=== PATIENT | male | born 2000 | race Caucasian/White ===

== ENCOUNTER 2021-02-08 18:30 | Emergency (ER) | payer OTHER ==
--- NOTE | 2021-02-08 18:53 | ED Physician Documentation ---
History of Present Illness - Stated complaint Stated Complaint: C+ SYMPTOMS - History obtained from History obtained from: Patient - Additonal information Additional information: 20-year-old gentleman with history of some sort of arrhythmia, active duty in the [employer]. Had a headache yesterday and today has low-grade fever, myalgias. No shortness of breath or cough. His whole family is sick. Review of Systems Ten Systems: 10 systems reviewed and negative Constitutional: reports: Fever, Chills, Myalgias, Fatigue Nose: denies: Rhinorrhea / runny nose Respiratory: denies: Dyspnea, Cough PD PAST MEDICAL HISTORY - Present Medications Home Medications: Ambulatory Orders Medication Instructions Recorded Confirmed No Known Home Medications 02/08/21 02/08/21 - Allergies Allergies/Adverse Reactions: Allergies Allergy/AdvReac Type Severity Reaction Status Date / Time No Known Drug Allergies Allergy Verified 02/08/21 19:20 PD ED PE NORMAL - Vitals Vital signs reviewed: Yes - General General: Alert and oriented X 3, No acute distress - Neck Neck: Supple, no meningeal sign, No bony TTP - Cardiac Cardiac: RRR, No murmur - Respiratory Respiratory: No respiratory distress, Clear bilaterally - Abdomen Abdomen: Non tender - Derm Derm: No rash - Neuro Neuro: Alert and oriented X 3, Normal speech Results - Vitals Vitals: Vital Signs - 24 hr 02/08/21 02/08/21 19:15 20:57 Temperature 37.4 C 37.1 C Heart Rate 98 73 Respiratory 17 16 Rate Blood Pressure 132/83 H 121/67 O2 Saturation 100 98 Oxygen O2 Source Room air PD MEDICAL DECISION MAKING - ED course ED course: His son tested positive during his visit today for rhinovirus so the presumption would be that is what this patient has as well. That is said he is advised to quarantine pending Covid testing. Departure - Departure Disposition: 01 Home, Self Care Clinical Impression: Viral syndrome Condition: Good Record reviewed to determine appropriate education?: Yes Instructions: ED Viral Syndrome Comments: Tylenol or ibuprofen as needed for aches and pains. You have a Covid test pending. You need to self quarantine until the result is done and negative. Do not leave your house. Do not get near anybody. The results should be done in 48 to 72 hours. We will call with a positive result, the fastest way to get a negative result for confirmation though is to go to the hospital website at [email or web address], click on the my [facility] tab and sign up for the patient portal. If any friends or family get sick and would like to have a Covid test done, but do not have signs or symptoms that would necessitate being hospitalized, we encourage testing through our coronavirus swabbing station, call [phone] to schedule an appointment. Forms: Activity restrictions
[2021-02-08 20:58] VITALS: BP 121/67
== END 2021-02-08 21:17 | disposition home or self-care (01) ==
LOC: ED 18:30
DX: U07.1 COVID-19 (principal)
CPT/HCPCS: 99282; 99283

== ENCOUNTER 2021-03-24 12:39 | Emergency (ER) | payer OTHER ==
[2021-03-24] MEDS ORDERED: ACETAMINOPHEN 325 MG TABLET PO STA (13:24)
[2021-03-24] MEDS ORDERED: IBUPROFEN 800 MG TABLET PO STA (13:24)
--- OUTSIDE RECORDS SUMMARY | 2021-03-24 13:25 | EXTERNAL MEDICAL SUMMARY RPT | Continuity of Care Document ---
:2000 Demographics Phone Unavailable Preferred Language Unknown Marital Status Unknown Orthodoxy Affiliation Unknown Race Unknown Ethnic Group Unknown Author Organization [facility] Address [address] [place] [address] Phone Allergies Encounters Medications Problems Results
--- NOTE | 2021-03-24 14:11 | ED Physician Documentation ---
History of Present Illness - Stated complaint Stated Complaint: HEAD PX/FEVER - Chief complaint Chief Complaint: General - History obtained from History obtained from: Patient - History of Present Illness Timing: Last night Pain level max: 8 Pain level now: 8 - Additonal information Additional information: 20 year old male states that he was diagnosed with COVID about 5 weeks ago, states received moderna vaccination yesterday. now has fevers and body aches today. no cough, no congestion. no vomiting. no abd pain. no ear pain. no sore throat. Review of Systems Ten Systems: 10 systems reviewed and negative Constitutional: reports: Fever, Chills Ears: denies: Ear pain Nose: denies: Rhinorrhea / runny nose, Congestion Throat: denies: Sore throat Cardiac: denies: Chest pain / pressure Respiratory: denies: Dyspnea, Cough, Wheezing GI: denies: Abdominal Pain, Nausea, Vomiting, Diarrhea Skin: denies: Rash Musculoskeletal: denies: Neck pain, Back pain Neurologic: reports: Headache (gradual onset. holocranial) PD PAST MEDICAL HISTORY - Past Medical History Past Medical History: Yes Cardiovascular: None Respiratory: None Neuro: None Endocrine/Autoimmune: None GI: None : None HEENT: None Psych: None Musculoskeletal: None Derm: None - Past Surgical History Past Surgical History: Yes General: Appendectomy - Present Medications Home Medications: Ambulatory Orders Medication Instructions Recorded Confirmed No Known Home Medications 02/08/21 03/24/21 - Allergies Allergies/Adverse Reactions: Allergies Allergy/AdvReac Type Severity Reaction Status Date / Time No Known Drug Allergies Allergy Verified 03/24/21 12:57 - Social History Does the pt smoke?: No Smoking Status: Former smoker Does the pt drink ETOH?: Yes Does the pt have substance abuse?: No - Immunizations Immunizations are current?: Yes - POLST Patient has POLST: No PD ED PE NORMAL - Vitals Vital signs reviewed: Yes - General General: Alert and oriented X 3, No acute distress - HEENT HEENT: PERRL, Ears normal, Moist mucous membranes, Pharynx benign - Neck Neck: Supple, no meningeal sign, No adenopathy - Cardiac Cardiac: RRR, Strong equal pulses - Respiratory Respiratory: No respiratory distress, Clear bilaterally - Abdomen Abdomen: Soft, Non tender, Non distended - Back Back: No CVA TTP, No spinal TTP - Derm Derm: Warm and dry, No rash - Extremities Extremities: No edema - Neuro Neuro: Alert and oriented X 3 - Psych Psych: Normal mood, Normal affect Results - Vitals Vitals: Vital Signs - 24 hr 03/24/21 03/24/21 03/24/21 12:51 13:35 14:27 Temperature 39.3 C H 39.5 C H 39.2 C H Heart Rate 112 H 107 H 114 H Respiratory 18 18 18 Rate Blood Pressure 140/68 H 132/58 H 116/67 O2 Saturation 100 100 97 03/24/21 15:09 Temperature 37.9 C Heart Rate 100 Respiratory 16 Rate Blood Pressure 117/56 L O2 Saturation 97 Oxygen O2 Source Room air PD MEDICAL DECISION MAKING - ED course Complexity details: considered differential, d/w patient, d/w family ED course: Patient defervesced in the emergency department with Motrin and Tylenol. Appears to be a robust reaction to the vaccination. No evidence of pneumonia, sepsis, appendicitis, etc. Patient feels much better after medication. Discussed with his as well. Patient and family counseled regarding signs and symptoms for which I believe and urgent re-evaluation would be necessary. Patient with good understanding of and agreement to plan and is comfortable going home at this time This document was made in part using voice recognition software. While efforts are made to proofread this document, sound alike and grammatical errors may occur. Departure - Departure Disposition: 01 Home, Self Care Clinical Impression: Vaccine reaction Qualifiers: Encounter type: initial encounter Qualified Code(s): T50.Z95A - Adverse effect of other vaccines and biological substances, initial encounter Condition: Good Instructions: ED Fever Unconf Cause Follow-Up: RHYS HOFFMAN III, MD [Primary Care Provider] - Comments: Continue motrin and tylenol at home. This usually lasts about 24-36 hours. Return if you worsen. Discharge Date/Time: 03/24/21 15:19
[2021-03-24 15:09] VITALS: BP 117/56
== END 2021-03-24 15:19 | disposition home or self-care (01) ==
LOC: ED 12:39
DX: R50.9 Fever, unspecified (principal); R51.9 Headache, unspecified; T50.Z95A Adverse effect of other vaccines and biological substances, initial encounter; Y84.8 Other medical procedures as the cause of abnormal reaction of the patient, or of later complication, without mention of misadventure at the time of the procedure; Z86.16 Personal history of COVID-19; Z87.891 Personal history of nicotine dependence
CPT/HCPCS: 99282; 99284; A9270

== ENCOUNTER 2022-10-28 07:56 | Outpatient (CLI) | payer OTHER | END 2022-10-28 07:57 | disposition home or self-care (01) | LOC: DI 07:56 | DX: R00.2 Palpitations (principal) | CPT/HCPCS: 93306 ==